=== PATIENT | female | born 1985 | race Caucasian/White ===

== ENCOUNTER 2016-08-17 23:13 | Emergency (ER) | payer SELFPAY ==
[~2016-08-17] VITALS: Ht 162.6 cm; Wt 98.0 kg
[2016-08-17 23:23] VITALS: Ht 162.6 cm; Wt 98.0 kg
[2016-08-18] MEDS ORDERED: AZIT250T94 PO (00:41)
[2016-08-18] MEDS ORDERED: UDROBDM PO (00:41)
[2016-08-18] MEDS ORDERED: CETI10CA PO (00:44)
[2016-08-18] MEDS ORDERED: FLUT9.9S NASAL (00:44)
--- NOTE | 2016-08-18 00:56 | ERD ---
ER Documentation Chief Complaint Date/Time DATE: 08/18/16 TIME: 00:45 Chief Complaint cough x 1 week HPI This a 31-year-old female who presents to the emergency department today complaining of cough for the past 10 days. Patient states that she had something about 1 month ago that resolved but has now returned. States that 4 days ago she had a fever. States the cough is worse at night. States that she has taken out because seltzer cold and cough medicine with no improvement. Denies any sore throat, earache, body aches. Denies any chest pain or shortness of breath ROS All systems reviewed and are negative except as per history of present illness. Medications Home Meds Active Scripts Cetirizine Hcl* (Zyrtec*) 10 Mg Capsule, 10 MG PO DAILY, #14 TAB.CHEW Prov:PATRICIA MARIANO PA-C 08/18/16 Fluticasone Propionate (Flonase Allergy Relief) 9.9 Ml [place].susp, 2 SPRAY NASAL DAILY, #1 BOTTLE TO EACH NOSTRIL Prov:PATRICIA MARIANO PA-C 08/18/16 Guaifenesin-Dextromethorphan* (Robitussin* DM) 100MG/10MG/5ML Syrup, 10 ML PO Q6H Y for COUGH for 5 Days, ML Prov:PATRICIA MARIANO PA-C 08/18/16 Azithromycin* (Zithromax*) 250 Mg Tablet, 250 MG PO .ZPACK DIRECTED, #6 TAB TAKE 500 MG (2 TABS) THE FIRST DAY THEN 250 MG (1 TAB) DAYS 2-5 Prov:PATRICIA MARIANO PA-C 08/18/16 PMhx/Soc Medical and Surgical Hx: pt denies Medical Hx, pt denies Surgical Hx Hx Alcohol Use: No Hx Substance Use: No Hx Tobacco Use: No Physical Exam Vitals Vital Signs Date Time Temp Pulse Resp B/P Pulse Ox O2 Delivery O2 Flow Rate FiO2 08/17/16 23:23 99.2 90 20 110/74 98 Physical Exam Const: Obese, no acute distress Head: Atraumatic Eyes: Normal Conjunctiva ENT: Ears TMs normal. Nose no drainage. Throat no erythema no exudate Neck: Full range of motion..~ No meningismus. Resp: Clear to auscultation bilaterally. No absent breath sounds. No wheezing. Cardio: Regular rate and rhythm, no murmurs Skin: No petechiae or rashes Neur: Awake and alert Psych: Normal Mood and Affect Procedures/MDM This a 31-year-old female who presents to the emergency department today complaining of cough for the past 10 days. Patient indicates that her cough is worse at night and that she had had something similar proximal he 1 month ago that resolved and has not returned. Given the patient's duration of symptoms I will give her a prescription for azithromycin to treat possible bronchitis. Patient also indicated that she is concerned that someone that she was in contact with was diagnosed with pertussis and she was concerned about that. I explained her that the azithromycin would cover her for pertussis as well as pneumonia. He is afebrile and otherwise well-appearing. Her oxygen saturation is 98%. Her respirations are 20 and she is not tachycardic. Low suspicion for pneumonia, PE, abscess, pleural effusion, pneumothorax. Patient's cough was also worse at night may be also related to allergies and therefore I will give her a prescription for Zyrtec and Flonase. At this time the patient is stable for discharge and outpatient management. Patient should follow up with their PCP in the next 1-2 days. They may return to the emergency department sooner for any persistent or worsening of symptoms. Patient understood and agreed with the plan. Departure Diagnosis: Primary Impression: Cough Condition: Fair Patient Instructions: Cough, Chronic, Uncertain Cause, (Adult) Referrals: [facility], [facility] YOU HAVE RECEIVED A MEDICAL SCREENING EXAM AND THE RESULTS INDICATE THAT YOU DO NOT HAVE A CONDITION THAT REQUIRES URGENT TREATMENT IN THE EMERGENCY DEPARTMENT. FURTHER EVALUATION AND TREATMENT OF YOUR CONDITION CAN WAIT UNTIL YOU ARE SEEN IN YOUR DOCTORS OFFICE WITHIN THE NEXT 1-2 DAYS. IT IS YOUR RESPONSIBILITY TO MAKE AN APPOINTMENT FOR FOLOW-UP CARE. IF YOU HAVE A PRIMARY DOCTOR --you should call your primary doctor and schedule an appointment IF YOU DO NOT HAVE A PRIMARY DOCTOR YOU CAN CALL OUR PHYSICIAN REFERRAL HOTLINE AT IF YOU CAN NOT AFFORD TO SEE A PHYSICIAN YOU CAN CHOSE FROM THE FOLLOWING [facility], [facility] [address] [facility]. [facility] [address] [facility]. [facility] [address] [facility] [facility] [address] [facility]. [facility] [address] [facility]. [facility] [address] Additional Instructions: Call your primary care doctor TOMORROW for an appointment during the next 1-2 days.See the doctor sooner or return here if your condition worsens before your appointment time. Take Antibiotics as prescribed Take Robitussin for cough Take Zyrtec and Flonase as prescribed PATRICIA MARIANO PA-C Aug 18, 2016 00:56
[2016-08-18 01:15] VITALS: RESP 16
== END 2016-08-18 01:16 | disposition home or self-care (01) ==
LOC: FTE 23:13
DX: R05 Cough (principal)
CPT/HCPCS: 99283